=== PATIENT | male | born 1955 | race Caucasian/White ===

== ENCOUNTER → 2017-04-12 | Outpatient (CLI) | payer OTHER ==
[~2017-04-12] MED LIST: ASPIRIN LO-DOSE81 MG PO; CALCIUM500 MG PO; CITRACAL+D(315M1 TAB PO; CLARITIN10 MG PO; DAILY VALUE1 EACH PO; DECADRON1 MG PO; DIOVAN40 MG PO; FISH OIL 1,0001 EACH PO; FLEXERIL10 MG PO; GLUCOPHAGE500 MG PO; HYDRODIURIL25 MG PO; INVOKANA100 MG PO; LANTUS SOL100 UNIT/1 SUB-Q; LIPITOR20 M1 PO; NEXIUM40 MG PO; NOVOLOG100 UNIT/M SUB-Q; PRILOSEC20 MG PO; PROAIR HFA8.5 GM INH; ULTRAM50 MG PO
== END | disposition disaster alternative care site (69) ==
LOC: GRAD 07:36
DX: M54.2 Cervicalgia (principal); M25.519 Pain in unspecified shoulder; M47.892 Other spondylosis, cervical region; M48.02 Spinal stenosis, cervical region

== ENCOUNTER → 2017-04-24 | Outpatient (CLI) | payer OTHER ==
[2017-04-24 11:54] LABS: INR - (THERAPEUTIC) 0.95 (0.92-1.07)
== END | disposition disaster alternative care site (69) ==
LOC: LGSMG 11:43
PROVIDERS: Internal Medicine
DX: Z01.818 Encounter for other preprocedural examination (principal)

== ENCOUNTER 2017-05-03 09:00 | Day surgery (SDC) | payer OTHER ==
[~2017-05-03] VITALS: Ht 167.6 cm; Wt 72.7 kg
--- NOTE | ~2017-05-03 | OR ---
PATIENT'S NAME: JALEN JORGENSEN [facility] AGE: 62 Y [address] ROOM: [place] [address] LOCATION: [facility] ADMIT DATE: 05/03/2017 OR/Procedure Report DISCHARGE DATE: FAMILY PHYSICIAN: FRENCH HARDEN MD ATTENDING PHYSICIAN: CARROLL KRUSE SURGEON: Carroll Kruse MD SUPERIOR COURT JUDGE: DATE OF PROCEDURE: 05/03/2017 ANESTHESIOLOGIST: Dada Pepe M.D. ANESTHESIA: General. COMPLICATIONS: None. ESTIMATED BLOOD LOSS: Minimal. PREOPERATIVE DIAGNOSES: 1. C5-C6 severe spinal stenosis with radiculopathy. 2. C6-C7 severe spinal stenosis with radiculopathy. 3. C5-C6 and C6-C7 degenerative joint disease with neck pain. 4. Bilateral C6 foraminal stenosis with radiculopathy. 5. Bilateral C7 foraminal stenosis with radiculopathy. POSTOPERATIVE DIAGNOSES: 1. C5-C6 severe spinal stenosis with radiculopathy. 2. C6-C7 severe spinal stenosis with radiculopathy. 3. C5-C6 and C6-C7 degenerative joint disease with neck pain. 4. Bilateral C6 foraminal stenosis with radiculopathy. 5. Bilateral C7 foraminal stenosis with radiculopathy. PROCEDURES: 1. C5-C6 anterior cervical diskectomy and decompression of the neural elements for stenosis. 2. C6-C7 anterior cervical diskectomy and decompression of the neural elements for stenosis. 3. Bilateral C6, bilateral C7 foraminotomy and decompression of the neural elements. 4. Insertion of cortical cancellous structural allograft spacers into C5-C6 and C6-C7 disk spaces ([employer] Cornerstone system). INTRAOPERATIVE FINDINGS: 1. Very severe stenosis at C5-C6 and C6-C7 level. 2. Left C6-C7 disk herniation with severe compression on the left C7 nerve root. PATIENT'S NAME: JALEN JORGENSEN [facility] AGE: 62 Y [address] ROOM: [place] [address] LOCATION: [facility] ADMIT DATE: 05/03/2017 OR/Procedure Report DISCHARGE DATE: FAMILY PHYSICIAN: FRENCH HARDEN MD ATTENDING PHYSICIAN: CARROLL KRUSE 3. Severe osteoporosis. CLINICAL HISTORY: The patient is a 62-year-old male who was diagnosed clinically and on imaging to have the above-mentioned diagnoses. He has tried physical therapy, but continued to have neurologic symptoms on his left upper extremity. His imaging showed the above-mentioned findings. I recommended the above-mentioned surgery. I discussed the risks and benefits. The patient was interested in proceeding with surgery, so he was brought in for the operation. DESCRIPTION OF PROCEDURE: The patient was seen in the preoperative care unit and the correct side was marked. Then, he was transferred to the main operating theater, was given general anesthetic, and underwent endotracheal intubation without complications. Preoperative antibiotics and steroids were used throughout the procedure. Calf compressors were used throughout the procedure. The patient was positioned supine on the table and all his joints and bony prominences were securely padded. The patient's head was placed on a gel padded beanbag in mild extension. Shoulders were taped away to facilitate intraoperative fluoroscopy. Then, I marked the transverse skin incision on the right side of the neck at C6 level. The surgical site was then prepped and draped as per usual. The proposed skin incision was infiltrated with 0.25% Marcaine with epinephrine. Skin was sharply opened down to the subplatysmal plane, then subplatysmal dissection was done both cranially and caudally. Then, I dissected through the middle cervical fascia down to the prevertebral fascia, which was coagulated and incised to expose the anterior surface of the spine. The correct level was then confirmed using intraoperative fluoroscopy. I then proceeded to elevate the longus colli muscles off the C5-C6 and C6-C7 disk spaces. That was done without any complications. Then, I proceeded to perform the diskectomy. I first inserted distracting pins into C5 and C6 vertebral bodies, but I noticed significant osteoporosis upon distracting at C5-C6 level. Given that, the distracting pins were removed and the holes were sealed with bone wax. Then, I proceeded to perform the diskectomy at C5-C6 level. I used disk space dry cell assembly machine tender to perform the diskectomy. Even with the disk space dry cell assembly machine tender, I noticed significant osteoporosis. That part of the operation was substantially difficult and required more time and caution to perform. I then did the C5-6 diskectomy using different sizes curettes and pituitary rongeur. I got down to the posterior aspect of the disk and as expected, there was very large posterior projecting osteophyte causing severe canal stenosis and foraminal stenosis. Using high-speed Midas Kalia drill, that osteophyte was thinned down. Then, using Kerrison rongeur, the osteophyte was completely removed. I then got down to the epidural plane and the PLL and the posterior projecting osteophytes were removed. Then, I turned my attention to PATIENT'S NAME: JALEN JORGENSEN [facility] AGE: 62 Y [address] ROOM: [address] [address] LOCATION: [facility] ADMIT DATE: 05/03/2017 OR/Procedure Report DISCHARGE DATE: FAMILY PHYSICIAN: FRENCH HARDEN MD ATTENDING PHYSICIAN: CARROLL KRUSE perform the foraminotomy at C5-C6 level. I did that using Kerrison rongeur. I did bilateral foraminotomy. I was satisfied with that. Then, the cortical cancellous allograft spacer was inserted and distraction was released. The spacer was solidly anchored in the C5-C6 disk. Then, I proceeded to perform the C6-C7 diskectomy. Again, there was severe osteoporosis and he was unable to use the distracting pins. I used the disk space dry cell assembly machine tender to perform the diskectomy. Gentle distraction was applied. That part of the operation was substantially difficult and required more time and caution to perform. The C6-C7 diskectomy was performed using different sizes curettes and pituitary rongeur. I got down into the posterior aspect of the disk and as expected, there was posterior projecting osteophytes especially on the left side. I also noticed the disk herniation fragment on the left side that was moderately impinging the left C7 nerve root. The disk fragment was removed. Then, the posterior projecting osteophytes were removed. The thecal sac was decompressed. I then performed bilateral C7 foraminotomy without any complications. Then, a cortical cancellous structural allograft spacer was inserted into C6-C7 disk without any complications. Distraction was released and the spacer was solidly anchored into C6-C7 disk. Given the severe osteoporosis, I aborted inserting anterior cervical titanium plate and screws to minimize chances of hardware failure and screws backing out. The wound was copiously irrigated. I noticed moderate oozing from the bone given the osteoporosis. Given that, a FLORENTINO drain was left in the wound. The drain tubing was tunneled to exit in a separate wound. The drain was anchored to the skin with 3-0 Prolene. Then, the wound was irrigated with bacitracin- containing irrigation. The wound was then closed in layers with 2-0 Vicryl to the platysma, 2-0 Vicryl to the subcutaneous tissue, and kim for the skin. Sterile dressing was applied. At the end of the operation, the instrument and sponge counts were correct. The patient tolerated the operation without any complications. This operation was substantially difficult given the severe osteoporosis and severe stenosis at C5-C6 and C6-C7 levels and that required more time and caution to perform in order to achieve satisfactory decompression and avoid complications. MD OLY SIGALA/michael PATIENT'S NAME: JALEN JORGENSEN [facility] AGE: 62 Y [address] ROOM: [place] [address] LOCATION: [facility] ADMIT DATE: 05/03/2017 OR/Procedure Report DISCHARGE DATE: FAMILY PHYSICIAN: FRENCH HARDEN MD ATTENDING PHYSICIAN: CARROLL KRUSE /[id number] CC: French Harden MD d: 05/03/17 2140 t: 05/07/17 1201, OPERATIVE SUMMARY
--- NOTE | ~2017-05-03 | DS ---
PATIENT'S NAME: JALEN JORGENSEN [facility] AGE: 62 Y [address] ROOM: [address] [address] LOCATION: [id number] ADMIT DATE: 05/03/2017 Discharge Summary DISCHARGE DATE: 05/04/2017 FAMILY PHYSICIAN: Aly Sutton MD ATTENDING PHYSICIAN: Carroll Kruse ADMISSION MAIN DIAGNOSES: 1. C5-C6 severe spinal stenosis with radiculopathy. 2. C6-C7 severe spinal stenosis with radiculopathy. 3. Left C6-C7 disk herniation with severe left C7 radiculopathy. 4. Bilateral C6, bilateral C7 foraminal stenoses with radiculopathy. DISCHARGE MAIN DIAGNOSES: 1. C5-C6 severe spinal stenosis with radiculopathy. 2. C6-C7 severe spinal stenosis with radiculopathy. 3. Left C6-C7 disk herniation with severe left C7 radiculopathy. 4. Bilateral C6, bilateral C7 foraminal stenoses with radiculopathy. PROCEDURES: 1. C5-C6, C6-C7 anterior cervical diskectomy and fusion. 2. Bilateral C6, bilateral C7 foraminotomy and decompression. COMPLICATIONS DURING ADMISSION: None. MEDICATIONS ON DISCHARGE: 1. Resume all pre-admission medications. 2. Aspirin 81 mg p.o. once daily (start on May 08, 2017). 3. Dexamethasone 2 mg p.o. b.i.d. for 24 hours, then 2 mg p.o. once daily for 2 days, then stop. 4. Flexeril 10 mg p.o. every 8 hours p.r.n. 5. Tramadol 50 to 100 mg p.o. every 6 hours p.r.n. DISCHARGE INSTRUCTIONS AND FOLLOWUP APPOINTMENTS: 1. Myself on May 15, 2017, for a staple removal. 2. [place] neck collar 21/05, may take off for showering. 3. Call my office for any concerns regarding the wound healing or for any new neurologic symptoms. 4. No heavy lifting, no neck twisting. 5. Keep the dressing on and dry until May 12, then take off and keep the wound open to air. HOSPITAL COURSE: The patient is a 62-year-old male patient, who was admitted electively to the hospital for the above-mentioned surgery. He underwent an unremarkable operation. Intraoperatively, it was noticed that the patient has wxqhyrwg-[id number]-wdwyoc osteoporosis. Postoperatively, the patient did well. He PATIENT'S NAME: JALEN JORGENSEN [facility] AGE: 62 Y [address] ROOM: [address] [address] LOCATION: [facility] ADMIT DATE: 05/03/2017 Discharge Summary DISCHARGE DATE: 05/04/2017 FAMILY PHYSICIAN: Aly Sutton MD ATTENDING PHYSICIAN: Carroll Kruse had no new neurologic deficits. His preoperative left arm pain and numbness completely resolved after the surgery. On the day of discharge, the patient was examined. He continued to do well. He had no new neurologic deficits on exam. He tolerated oral intake well. He had postoperative C-spine x-ray and that showed satisfactory C5-C6, C6-C7 anterior cervical diskectomy and fusion. The wound was healing well without any evidence of infection or dehiscence. I reviewed the discharge instructions with the patient and his . The patient was discharged home today. MD OLY SIGALA/modl /[id number] CC: Aly Sutton MD d: 05/04/17 0954 t: 05/07/17 1204, DISCHARGE SUMMARY
[~2017-05-03 09:00] MED LIST changes: -DECADRON1 MG PO; -FLEXERIL10 MG PO; -ULTRAM50 MG PO
--- NOTE | 2017-05-04 05:12 | NUR ---
Pt has achs accucecks. Novolog schedued and S/S. Scheduled Levemir. Pt had nausea w/ emesis earlier in shift, zofran given. Pt was getting Roxycodone, but states he feels a little nausea after each roger. Pt states he wants ultram next time. Pt ambulated in halls one assist. Irma collar on. Pt has xray at 0600. Plans to go home. Pt denies numbness or tingling. Room air. 10mL out of FLORENTINO. Pt voiding w/o difficulty. Shadow dressing on neck.
[2017-05-04] MEDS ORDERED: DECADRON1 MG PO (09:28)
[2017-05-04] MEDS ORDERED: ULTRAM50 MG PO (09:30)
[2017-05-04] MEDS ORDERED: FLEXERIL10 MG PO (09:31)
--- NOTE | 2017-05-04 13:52 | NUR ---
Dismissal Note: Ambulates with SBA and gaitbelt. Dressing changed by Dr Kruse. Johnson collar on at all times. Voids without diffculty. Tramadol 50mg last at 1205. Naseem education given with dismissal instructions, patient and state understanding. IV d/cd. Dismissed to home with per private vehicle.
== END 2017-05-04 12:30 | disposition disaster alternative care site (69) ==
LOC: GSDC 09:00 → G3N 09:00 → GSDC 10:00 → G3N 17:20 → GSDC 05-04 12:30
DX: M48.02 Spinal stenosis, cervical region (principal); M50.121 Cervical disc disorder at C4-C5 level with radiculopathy; M50.123 Cervical disc disorder at C6-C7 level with radiculopathy; M81.0 Age-related osteoporosis without current pathological fracture; E78.5 Hyperlipidemia, unspecified; I10 Essential (primary) hypertension; E10.9 Type 1 diabetes mellitus without complications
CPT/HCPCS: J0690; J1030; J2001; J2250; J2405; J3010; J7030

== ENCOUNTER → 2017-06-12 | Outpatient (CLI) | payer OTHER ==
[~2017-06-12] MED LIST changes: +DECADRON1 MG PO; +FLEXERIL10 MG PO; +ULTRAM50 MG PO
== END ==
LOC: GBCOE 06-07 13:00
DX: E11.9 Type 2 diabetes mellitus without complications (principal); M81.0 Age-related osteoporosis without current pathological fracture; Z79.4 Long term (current) use of insulin